=== PATIENT | male | born 1995 | race Caucasian/White ===

== ENCOUNTER → 2017-03-23 | Outpatient (CLI) | payer BC ==
--- NOTE | 2017-03-23 09:43 | Diagnostic Imaging Report ---
INDICATION: Left hand pain. AP, oblique, and lateral views of left hand are obtained. FINDINGS: There is a nondisplaced fracture of the midpole of the scaphoid. No other bony abnormalities are seen. Joint spaces are unremarkable. IMPRESSION: Nondisplaced fracture of mid pole of scaphoid. Dictated by: Dictated on workstation # [id number]
--- NOTE | 2017-03-23 09:46 | Diagnostic Imaging Report ---
INDICATION: Left wrist pain post fall AP, oblique, and lateral views of the left wrist are obtained. There is a nondisplaced fracture of the midpole of the scaphoid. There is no other fracture seen. Joint spaces are unremarkable. IMPRESSION: Nondisplaced fracture of mid pole scaphoid with no other bony abnormality seen. Dictated by: Dictated on workstation # [id number]
== END ==
LOC: RAD 09:08
PROVIDERS: ATTEND Nurse Practitioner Family
DX: S62.022A Displaced fracture of middle third of navicular [scaphoid] bone of left wrist, initial encounter for closed fracture (principal); X58.XXXA Exposure to other specified factors, initial encounter; Y99.8 Other external cause status
CPT/HCPCS: 73110; 73130

== ENCOUNTER → 2021-06-14 | Outpatient (CLI) | payer BC | LOC: CARD 08:00 | PROVIDERS: ATTEND Nurse Practitioner Family | DX: R00.2 Palpitations (principal) | CPT/HCPCS: 93225; 93226 ==